=== PATIENT | male | born 1955 | race Caucasian/White ===

== ENCOUNTER 2016-05-16 05:54 | Inpatient (IN) | payer MEDICAID ==
[2016-05-16] MEDS ORDERED: ACETAMINOPHEN 1000MG/100 ML PREMIX IV ONE (06:00)
[2016-05-16] MEDS ORDERED: METOCLOPRAMIDE 10 MG TABLET PO ONE (06:00)
[2016-05-16] MEDS ORDERED: CEFAZOLIN 2 Gram 50 ML IVPB ONE (06:00)
[2016-05-16] MEDS ORDERED: FAMOTIDINE 20MG TABLET PO ONE (06:00)
[2016-05-16] MEDS ORDERED: MECLIZINE 25 MG TABLET PO ONE (06:00)
[2016-05-16] MEDS ORDERED: OXYCODONE HCL 5 MG TABLET PO PRN (09:45)
[2016-05-16] MEDS ORDERED: SENNOSIDES/DOCUSATE SODIUM UD CAPSULE PO PRN (09:45)
[2016-05-16] MEDS ORDERED: METOCLOPRAMIDE HCL 10 MG/2 ML VIAL IVP PRN (09:45)
[2016-05-16] MEDS ORDERED: ONDANSETRON HCL IV 4 MG/2 ML VIAL IVP PRN (09:45)
[2016-05-16] MEDS: RINGERS SOLUTION,LACTATED 1,000 ML IV SCH ×2 (09:45→13:48)
[2016-05-16] MEDS ORDERED: TRAMADOL HCL 50 MG TABLET PO PRN (09:45)
[2016-05-16] MEDS ORDERED: ZOLPIDEM TARTRATE 5 MG TABLET PO PRN (09:45)
[2016-05-16] MEDS ORDERED: HYDROMORPHONE HCL 1 MG/ML CPJ IVP PRN (09:45)
[2016-05-16] MEDS ORDERED: MAGNESIUM HYDROXIDE 30 ML UDC PO PRN (09:45)
[2016-05-16] MEDS ORDERED: AL HYDROX/MAG HYDROX 30ML UD PO PRN (09:45)
[2016-05-16] MEDS ORDERED: DIPHENHYDRAMINE HCL 25 MG CAPSULE PO PRN (09:45)
[2016-05-16] MEDS ORDERED: RINGERS SOLUTION,LACTATED 1,000 ML IV PRN (10:24)
[2016-05-16] MEDS ORDERED: BUPIVACAINE 0.25% W/EPI MPF 30ML VIAL IVP ONE (10:50)
[2016-05-16] MEDS ORDERED: BUPIVACAINE LIPOSOME 266MG/20ML VIAL IV ONE (10:50)
[2016-05-16] MEDS ORDERED: TRANEXAMIC ACID 1,000 MG/10 ML ML IV ONE (10:50)
[2016-05-16] MEDS ORDERED: TRANEXAMIC ACID 1,000 MG in 0.9 % SODIUM CHLORIDE 100ML 100 ML IVPB ONE (11:00)
[2016-05-16] MEDS: TRAMADOL HCL 50 MG TABLET PO PRN (11:53)
[2016-05-16] MEDS: ACETAMINOPHEN 1,000 MG/ 100 ML IV SCH ×4 (12:54→18:43)
[2016-05-16] MEDS: OXYCODONE HCL 5 MG TABLET PO PRN ×3 (14:51→22:39)
[2016-05-16] MEDS: CEFAZOLIN 2 Gram 2 GM in DEXTROSE 1 BAG IVPB SCH ×2 (14:53→22:40)
[2016-05-16] MEDS ORDERED: DIPHENHYDRAMINE HCL IV 50 MG/ML VIAL IVP ONE (15:33)
[2016-05-16] MEDS ORDERED: FENTANYL PF 100MCG/2ML VIAL IV ONE (15:33)
[2016-05-16] MEDS ORDERED: MIDAZOLAM HCL 2MG/2ML VIAL IV ONE (15:33)
[2016-05-16] MEDS ORDERED: LIDOCAINE 2% MDV (20MG/ML) 20ML VIAL IV ONE (15:33)
[2016-05-16] MEDS ORDERED: PROPOFOL 10 MG/ML VIAL IV ONE (15:33)
[2016-05-16] MEDS: FONDAPARINUX 2.5 MG/0.5 ML SYR SQ SCH (18:08)
--- NOTE | 2016-05-16 18:15 | Rehab Evaluation ---
Patient Information - Patient Information Diagnosis: Left Knee OA Ordered Treatment: PT Evaluate and Treat Status: Initial Evaluation Surgery: Yes (L TKA) Date of Surgery: 05/16/16 History: Detail (Pt. reports wear and tear at the left knee for multiple years. Pt. reports left hip and ankle are healthy. Pt. is to have outpatient PT at [facility] starting 05/20/16.) Past Med/[place] Hx Detail: Detail (Pt. denies other joint related surgeries that would affect his functional status postoperatively. See PMH intake.) Past Medical/Surgical Hx: PAST MEDICAL/SURGICAL HISTORY Past Surgical History knee scopes; shoulder sx 13'; PMH - Respiratory Hx Respiratory Disorders Yes Comment: seasonal allergies PMH - Cardiovascular Hx Cardiovascular Disorders Yes Hx Chest Pain Yes: STATES STRESS 6 YRS AGO Exercise Tolerance Good Comment: PRIOR STRESS 6 YRS AGO AND NEG PMH - Neuro Hx Neurological Disorders No PMH - GI Hx Gastrointestinal Disorders No PMH - Hx Genitourinary Disorders Yes Hx Prostate Problems Yes: 6-8 YRS AGO SOME SWELLING WAS PUT ON ABX WITH RELIEF PMH - Endocrine Hx Endocrine Disorders No PMH - Musculoskeletal Hx Musculoskeletal Disorders Yes Hx Arthritis Yes: OSTEOARTHRITIS LEFT KNEE PMH - Psych Hx Psychiatric Problems No PMH - Hematology/Oncology Hx Hematology/Oncology No Disorders Premorbid Status: Detail (Pt. reports slowly progressive worsening of sx.) Social History: Detail (Pt. lives in a single story home with no steps leading in. Pt. has 4 steps inside the home that he has to use. Pt. has a standard tub, grab bar, and shower chair. Pt. has front wheeled walker. Pt. lives with who is able to provide support. Pt. has axillary crutches.) Precautions: [place], Fall - Time With Patient Total Time Spent With Patient (Min): 40 Treatment Procedures: Detail (PT Evaluation Completed. Pt. was left supine with call light available, B IPC, CPM attached, and cryo at LLE. Nursing was notified of pt.'s status.) Subjective Information - Subjective Information Per Patient (Pt. denied SOB, nausea, and reported feeling in his feet at start of tx.) Objective Data - Pain Pain Present: Yes (09/14 to start) Pain Intensity: 6 Pain Scale Used: Numeric (1 - 10) - Mental Status Patient Orientation: Oriented x3 - Visual Perception Appears within normal limits for therapeutic activities - ROM Other (CPM set at 60 degrees flexion and 0 degrees extension via CPM, LLE. RLE WNL all planes of movement. BUE WNL all planes of movement actively.) - Strength/Tone Not within normal limits (Break testing at the left knee not tolerated due to surgery. Left hip flexion and extension 4/5. Pt. unable to perform SLR, LLE. RLE 5/5 grossly. BUE 5/5 grossly.) - Coordination Appears within normal limits for therapeutic activities - Bed Mobility Needs Assist (Pt. required min assist x1 with bed mobility. Pt. unable to hook involved LE with contralateral leg for mobility tasks in bed, and required verbal cues to appropriately place the RLE for repositioning while supine in bed.) - Transfers Needs Assist (Pt. required min assist x1 with sit<->stand transfers. Pt. demonstrated good understanding of LE placement and hand placement on walker.) - Balance Balance Sitting: Good (Pt. able to maintain midline orientation while seated at bedside for ~2 minutes.) Balance Standing: Fair (Pt. able to stand I with front wheeled walker, but required mod assist x1 with perturbation testing in all directions to maintain midline orientation.) - Sensation Intact - Gait Detail (Not assessed due to standing at bedside orders.) - ADL's/IADL's Detail (Not assessed.) - Special Tests Yes (Negative AbesJose Luis.) Therapy Assessment - Therapy Assessment Detail (Pt. exhibits balance impairment, LE weakness, LE ROM impairment, and was not assessed for gait due to recent surgery.) Patient Education - Patient Education Teaching Topic: Disease Process, Equipment Use, Exercise/Activity (Pt. instructed on performance of ankle pumps, heel slides, quad sets, and glute sets.) Response: Return Demonstration, Verbalize Understanding Teaching Method: Discussion, Demonstration Teaching Recipient: Patient Barriers To Learning: None Problem List - Problem List Physical Therapy Problem List: Detail (1) LE weakness 2) LE ROM restriction 3) Standing balance impairment 4) Inability to assess ambulation 5) Assistance with bed mobility and transfers) Goals - Goals Physical Therapy Goals: 1) Pt. will be independent with HEP. 2) Pt. will ambulate more than 50 feet independently with or without AD and not demonstrate LOB for safe ambulation. 3) Pt. will maintain midline orientation with perturbation testing in all directions while standing for safe ambulation and transfers. 4) Pt. will be independent with bed mobility and transfers. 5) Pt. will verbalize understanding of precautions and signs of infection. 6) Pt. will ascend and descend 2 steps for two trials independently and demonstrate good understanding of AD placement and not demonstrate LOB for safe ambulation. Prognosis - Prognosis Good (Pt. is an excellent candidate for PT goal completion and return to home environment following inpatient stay secondary to TKA.) Plan - Plan Physical Therapy Plan: Pt. is to be seen 1-2x per day for physical therapy until PT goals have been achieved for safe D/C to home environment.
[2016-05-17] MEDS: ACETAMINOPHEN 1,000 MG/ 100 ML IV SCH ×2 (00:53)
[2016-05-17 06:01] LABS: HEMATOCRIT 40.2 % (42.0-52.0); HEMOGLOBIN 13.2 gm/dl (14.0-18.0); MEAN CELL VOLUME 88.2 fl (81-97); MEAN CORPUSCULAR HEMOGLOBIN 28.9 pg (27-33); MEAN CORPUSCULAR HGB CONC 32.8 g/dl (32-36); PLATELET COUNT 206 K/uL (130-400); RED BLOOD COUNT 4.56 M/uL (4.40-5.70); RED CELL DISTRIBUTION WIDTH 13.7 % (11.5-14.5); WHITE BLOOD COUNT W/O DIFF 8.5 K/uL (4.2-12.2)
[2016-05-17] MEDS: RINGERS SOLUTION,LACTATED 1,000 ML IV SCH (06:23)
[2016-05-17] MEDS: CEFAZOLIN 2 Gram 2 GM in DEXTROSE 1 BAG IVPB SCH (06:23)
[2016-05-17] MEDS: OXYCODONE HCL 5 MG TABLET PO PRN (06:46)
--- NOTE | 2016-05-17 08:18 | Operative Note ---
DATE OF SURGERY: 05/16/2016. SURGEON: Nba Vargas D.O. REFERRING PHYSICIAN: [facility] PREOPERATIVE DIAGNOSIS: PRIMARY OSTEOARTHRITIS OF THE LEFT KNEE. POSTOPERATIVE DIAGNOSIS: PRIMARY OSTEOARTHRITIS OF THE LEFT KNEE. OPERATIVE PROCEDURE: Left total knee arthroplasty. DESCRIPTION OF PROCEDURE: This 60-year-old male was taken to the operating room and was placed in the supine position on the operating room table. After spinal anesthesia was induced the left lower extremity was elevated. It was prepped with Hibiclens and draped in the usual sterile fashion. It was exsanguinated and the tourniquet was inflated to 300 mm Hg. All scrubbed personnel wore personal isolation suits. An anterior longitudinal midline incision was made followed by a medial peripatellar arthrotomy incision. An intracondylar drill hole was made for the intramedullary alignment hazel and the distal femoral cutting block was set at a 10-mm cut in 6 degrees of valgus, and the appropriate cuts were made. The wafer of bone was removed. The sizing jig was affixed, and a size 70 was seen to be the appropriate size femur. The four-in-one cutting block was then pinned in 3 degrees of external rotation and the appropriate cuts were made. We then directed our attention to the proximal tibia. An extramedullary alignment guide was used to cut the proximal tibia referencing a 10-mm cut off the lateral tibial plateau. However, it was necessary for us to take an additional 2.0 mm because of the patient's bone loss medially. The rotational alignment was checked, and the 3-degree posterior slope cut was made. The wafer of bone was removed. Remnants of the menisci and osteophytes were removed from the posterior aspect of the knee. The tibia was sized to a size 79. The stem punch was subsequently used. The wound was copiously irrigated with pulse lavage lactated ringers solution. The trial components were inserted , and a size 14 bearing trial was seen to be the appropriate size. The patella was cut and restored to anatomic heights with a 37 x 8.6 mm patella. The wound was then copiously irrigated with lactated ringers solution. Exparel was injected into the posteromedial and lateral corners of the joint. After the insertion of the final components, the remainder was injected into the periosteum and joint capsule of the proximal tibia and distal femur. After all bony surfaces were dried, all components were cemented and excess cement was removed after the insertion of each component. The tibial base plate was placed first followed by the tibial bearing, the femoral component, and finally the patella. The knee was again taken through range of motion with all final components in place with full extension and full flexion with good stability being identified. The drain was placed through a separate stab incision. The arthrotomy incision was closed with 2-0 Vicryl. The subcutaneous tissue was closed with 0 Vicryl and the skin was stapled. Polar Care was applied and the patient was taken to the recovery room in satisfactory condition. GROSS PATHOLOGY: This patient demonstrated very severe osteoarthritis, especially of the medial compartment and patellofemoral joint. However, relatively large osteophytes were also present on the lateral femoral condyle with grade 2 to 3 changes noted there as well. FINAL COMPONENTS INSERTED: A [employer] VanGuard size 70 cruciate-retaining femoral component, a 79 tibial base plate, a 14-mm anterior stabilized E1 bearing, and a 37 x 8.6 mm patella was used. Nba Vargas D.O. Date Time Job Number: [id number] MTDD
[2016-05-17] MEDS ORDERED: ACETAMINOPHEN 325 MG TAB PO PRN (09:45)
[2016-05-17] MEDS ORDERED: HYDROCODONE/APAP 7.5/325MG TABLET PO PRN ×2 (09:45)
[2016-05-17] MEDS ORDERED: OXYCODONE/APAP 7.5MG/325MG TABLET PO PRN (09:45)
[2016-05-17] MEDS: OXYCODONE/APAP 7.5MG/325MG TABLET PO PRN ×3 (09:55→23:02)
[2016-05-17] MEDS: CELECOXIB 100 MG CAPSULE PO SCH (09:56)
--- NOTE | 2016-05-17 11:43 | Physical Therapy Tx Note ---
Physical Therapy Tx Note - Treatment Note Tolerated: Good (Pt. reported 7/10 pain to start tx and was left supine with call light available, B IPC, CPM attached, and cryo LLE. Pt. reported 6/10 pain at end of tx session.) Total Time Spent With Patient: 45 Physical Therapy Tx Note: Detail (PT instructed pt. on bed mobility and transfers, however, pt. continues to require min assist x1 with LE positioning. PT provided CGA while pt. ambulated ~60 feet with front wheeled walker. Pt. c/o fatigue and requested to end ambulation training and sit at bedside. PT instructed pt. to perform sit<->stand transfer in bathroom via toilet seat. Pt. demonstrated good understanding of LE placement with sit to stand transfer. PT instructed pt. to perform supine exercises consisting of ankle pumps, quad sets , and glute sets.) Physical Therapy Problem List: Detail (1) LE weakness 2) LE ROM restriction 3) Standing balance impairment 4) Inability to assess ambulation 5) Assistance with bed mobility and transfers) Physical Therapy Goals: 1) Pt. will be independent with HEP. 2) Pt. will ambulate more than 50 feet independently with or without AD and not demonstrate LOB for safe ambulation. 3) Pt. will maintain midline orientation with perturbation testing in all directions while standing for safe ambulation and transfers. 4) Pt. will be independent with bed mobility and transfers. 5) Pt. will verbalize understanding of precautions and signs of infection. 6) Pt. will ascend and descend 2 steps for two trials independently and demonstrate good understanding of AD placement and not demonstrate LOB for safe ambulation. Prognosis: Good (Pt. is expected to meet goals for inpatient PT, however, may stay an additional night due to reports of pain during A.M. session on 05-17-16.) Physical Therapy Plan: Pt. is to be seen 1-2x per day for physical therapy until PT goals have been achieved for safe D/C to home environment.
[2016-05-17] MEDS: TRAMADOL HCL 50 MG TABLET PO PRN (13:01)
--- NOTE | 2016-05-17 16:07 | Physical Therapy Tx Note ---
Physical Therapy Tx Note - Treatment Note Tolerated: Good (Pt. maintained pain report of 5/10 throughout tx session. Pt. did not request break during ambulation. Pt. denied SOB, nausea, or fatigue.) Total Time Spent With Patient: 50 Physical Therapy Tx Note: Detail (PT provided CGA while pt. ambulated 90 feet with front wheeled walker. Pt. was I with bed mobility and transfers. Pt. stood and maintained midline orientation with perturbation testing in all directions. PT instructed pt. on car transfer, stair use, and home exercise program. Pt. sat at bedside for 2 minutes I and maintained midline orientation with perturbation testing in all directions. Pt. required hand support when ascending 3 steps due to difficulty with walker positioning on steps. Pt. states that he does not have to use stairs at home and that he will have family member support when attempting any form of stair use. Pt. was instructed that he is not safe to I use stairs at this time due to difficulty with AD placement. Pt. verbalized understanding of precautions and signs of infenction. Pt. demonstrated good understanding of HEP. Pt. was left supine with call light available, B IPC, cryo LLE, and nursing was notified of pt.'s status.) Physical Therapy Problem List: Detail (Pt. is appropriate for D/C to home environment and is safe to navigate, assuming pt. will have family member support with any attempt at stairs.) Physical Therapy Goals: 1) Pt. will be independent with HEP. 2) Pt. will ambulate more than 50 feet independently with or without AD and not demonstrate LOB for safe ambulation. 3) Pt. will maintain midline orientation with perturbation testing in all directions while standing for safe ambulation and transfers. 4) Pt. will be independent with bed mobility and transfers. 5) Pt. will verbalize understanding of precautions and signs of infection. 6) Pt. will ascend and descend 2 steps for two trials independently and demonstrate good understanding of AD placement and not demonstrate LOB for safe ambulation. Prognosis: Good (Pt. is appropriate for D/C from inpatient therapy and return to home environment. Pt. is to begin outpatient physical therapy on 05/20/16.) Physical Therapy Plan: D/C pt. from inpatient physical therapy.
[2016-05-17] MEDS: FONDAPARINUX 2.5 MG/0.5 ML SYR SQ SCH (16:50)
[2016-05-18 06:18] LABS: HEMATOCRIT 37.2 % (42.0-52.0); HEMOGLOBIN 12.4 gm/dl (14.0-18.0); MEAN CELL VOLUME 88.4 fl (81-97); MEAN CORPUSCULAR HGB CONC 33.3 g/dl (32-36); MEAN PLATELET VOLUME 10.1 fl (7.4-10.4); PLATELET COUNT 188 K/uL (130-400); RED BLOOD COUNT 4.21 M/uL (4.40-5.70); RED CELL DISTRIBUTION WIDTH 13.7 % (11.5-14.5); WHITE BLOOD COUNT W/O DIFF 7.5 K/uL (4.2-12.2)
[2016-05-18 06:26] LABS: MEAN CORPUSCULAR HEMOGLOBIN 29.4 pg (27-33)
[2016-05-18] MEDS: FONDAPARINUX 2.5 MG/0.5 ML SYR SQ SCH (09:02)
[2016-05-18] MEDS: CELECOXIB 100 MG CAPSULE PO SCH (09:02)
--- NOTE | 2016-05-20 09:36 | Discharge Summary ---
DATE OF ADMISSION: 05/16/2016. DATE OF DISCHARGE: 05/18/2016. ADMITTING DIAGNOSIS: Osteoarthritis of the left knee. DISCHARGE DIAGNOSES: Osteoarthritis of the left knee. OPERATIVE PROCEDURE: Elective left total knee arthroplasty. HISTORY OF THE PRESENT ILLNESS: This 60-year-old male was admitted to the hospital following elective total knee arthroplasty and tolerated the operative procedure well. He cleared physical therapy and was ready for discharge on 02/2017. The patient did not demonstrate any evidence of deep venous thrombosis or sign of complication. DISCHARGE INSTRUCTIONS: He will be discharged with aspirin 325 mg b.i.d. for two weeks. He will take Percocet 7.5/325 mg one or two every six hours as necessary for pain; he was given 80. He will alternate with Ultram 50 mg one or two every six hours as necessary for pain; he was given 60 with a refill. He will have outpatient physical therapy. Routine wound care instructions were given. He will follow up in the clinic in two weeks for staple removal. Should he have any problems prior to being seen he was instructed to call my office. Nba Vargas D.O. Date Time JOB NUMBER: [id number] MTDD
== END 2016-05-18 09:35 | disposition home or self-care (01) | DRG 470 ==
LOC: MEDSURG 05:54
PROVIDERS: ADMIT Orthopaedic Surgery; ATTEND Orthopaedic Surgery
PROC: 0SRD0J9 Replacement of Left Knee Joint with Synthetic Substitute, Cemented, Open Approach (ICD-10-PCS; principal; 2016-05-16 07:30)
DX: M17.12 Unilateral primary osteoarthritis, left knee (principal)
CPT/HCPCS: 85025; 97116; 97161; 97530; J1170; J1200; J7120

== ENCOUNTER 2017-04-03 05:51 | Day surgery (SDC) | payer MEDICAID ==
[2017-04-03] MEDS ORDERED: FENTANYL PF 100MCG/2ML VIAL IV ONE (05:52)
[2017-04-03] MEDS ORDERED: LIDOCAINE 2% MDV (20MG/ML) 20ML VIAL IV ONE (05:52)
[2017-04-03] MEDS ORDERED: ROCURONIUM BROMIDE 50MG/5ML VIAL IV ONE (05:52)
[2017-04-03] MEDS ORDERED: KETOROLAC 30 MG/ML VIAL IVP ONE (05:52)
[2017-04-03] MEDS ORDERED: SUCCINYLCHOLINE 20 MG/ML 10ML IVP ONE (05:52)
[2017-04-03] MEDS ORDERED: SEVOFLURANE 250 ML INH ONE (05:52)
[2017-04-03] MEDS ORDERED: EPINEPHRINE 1 MG/ML AMPUL SQ ONE (05:52)
[2017-04-03] MEDS ORDERED: ROPIVACAINE HCL (NAROPIN) /PF 5MG/ML 20ML VIAL IV ONE (05:52)
[2017-04-03] MEDS ORDERED: DEXAMETHASONE 4 MG/ML 1ML VIAL IVP ONE (05:52)
[2017-04-03] MEDS ORDERED: PROPOFOL 10 MG/ML VIAL IV ONE (05:52)
[2017-04-03] MEDS ORDERED: EPHEDRINE SULFATE 50 MG/ML ML IV ONE (05:52)
[2017-04-03] MEDS ORDERED: MIDAZOLAM HCL 2MG/2ML VIAL IV ONE (05:52)
[2017-04-03] MEDS ORDERED: ONDANSETRON HCL IV 4 MG/2 ML VIAL IVP ONE (05:52)
[2017-04-03 06:15] LABS: BASO % 0.5 % (0-6); EOS % 6.8 % (0-6); GRAN % 42.4 % (47-80); HEMATOCRIT 43.4 % (42.0-52.0); HEMOGLOBIN 14.1 gm/dl (14.0-18.0); LYMPH % 36.3 % (16-45); MEAN CELL VOLUME 88.8 fl (81-97); MEAN CORPUSCULAR HEMOGLOBIN 28.8 pg (27-33); MEAN CORPUSCULAR HGB CONC 32.5 g/dl (32-36); MEAN PLATELET VOLUME 9.7 fl (7.4-10.4); PLATELET COUNT 266 K/uL (130-400); RED BLOOD COUNT 4.89 M/uL (4.40-5.70); RED CELL DISTRIBUTION WIDTH 13.2 % (11.5-14.5); WHITE BLOOD COUNT W/O DIFF 4.4 K/uL (4.2-12.2)
[2017-04-03 06:29] LABS: BLOOD UREA NITROGEN 19 mg/dL (8-23); CREATININE 0.8 mg/dL (0.7-1.2); EST GLOMERULAR FILTRATION RATE > 60 mL/min; GLUCOSE,RANDOM 111 mg/dL (74-109)
[2017-04-03] MEDS ORDERED: ACETAMINOPHEN 1,000 MG/100 ML BTL IV ONE (06:30)
[2017-04-03] MEDS ORDERED: CEFAZOLIN 2 Gram 2 GM/50 ML BAG IVPB ONE (06:30)
--- NOTE | 2017-04-04 17:30 | Operative Note ---
DATE OF SURGERY: 04/03/2017 SURGEON: Nba Vargas DO REFERRING: New Guzman DO PREOPERATIVE DIAGNOSES: 1. Tear of the left rotator cuff. 2. Impingement syndrome, left shoulder. POSTOPERATIVE DIAGNOSES: 1. Tear of the left rotator cuff. 2. Impingement syndrome, left shoulder. OPERATIVE PROCEDURE: 1. Arthroscopic debridement of the rotator cuff. 2. Arthroscopic subacromial decompression and acromioplasty, left shoulder. DESCRIPTION: This 61-year-old male was taken to the operating room and placed in the supine position on the operating room table. General anesthesia was induced after a scalene nerve block and the patient was then placed in the beach chair position on the operating room table, bolstered, head well padded, and bony prominences well padded and secured. The left shoulder was then prepped with Hibiclens and draped in the usual sterile fashion. 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 An anterior portal was established. Probing revealed no evidence of labral tear. The patient did have some fraying of the subscapularis, but the supraspinatus and infraspinatus were completely gone and retracted. No visualization of the cuff at the joint line was even evident. The scope was then placed in the subacromial space, and again, no rotator cuff was visualized initially. We thoroughly debrided the extensive bursitis in the subacromial space and once we had debrided all the bursal tissue, we did find a retracted rotator cuff tear posteriorly. The supraspinatus and infraspinatus completely retracted to the level of the joint line with atrophy and scarring being present. We tried to mobilize this utilizing an elevator and debriding scar with the ArthroCare wand. Then we tried to mobilize this tissue, but we could not even come close to covering the humeral head. We felt that this cuff was not repairable. The patient's biceps tendon was absent. We thoroughly debrided the bursal tissue and subacromial decompression and acromioplasty was performed and the wound irrigated and the scope removed, the portals closed with 4-0 nylon suture. Sterile dressings were applied, and the patient was taken to the recovery room in satisfactory condition. GROSS PATHOLOGY: This patient demonstrated severe retracted tear of the rotator cuff tendons, supraspinatus, and infraspinatus with some fraying of the subscapularis also. The biceps tendon was absent. 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 CC: DO SHINE Zamora
== END 2017-04-03 09:50 | disposition home or self-care (01) ==
LOC: SUR 05:51
PROVIDERS: ATTEND Orthopaedic Surgery
DX: M75.122 Complete rotator cuff tear or rupture of left shoulder, not specified as traumatic (principal); M75.42 Impingement syndrome of left shoulder
CPT/HCPCS: 29826; 29827; 64415; 01630; 85025; 80048; J1885; J2405; J3010; J0690; J2795; J0171; J0330

== ENCOUNTER 2017-11-06 09:26 | Day surgery (SDC) | payer MEDICAID ==
[2017-11-06] MEDS ORDERED: PROPOFOL 10 MG/ML VIAL IV ONE (09:27)
[2017-11-06] MEDS ORDERED: LIDOCAINE 2% MDV (20MG/ML) 20ML VIAL IV ONE (09:27)
[2017-11-06] MEDS ORDERED: MIDAZOLAM HCL 2MG/2ML VIAL IV ONE (09:27)
--- NOTE | 2017-11-07 12:40 | Operative Note ---
DATE OF SURGERY: 11/06/2017 OPERATION: COLONOSCOPY with cold snare polypectomy. PREOPERATIVE DIAGNOSIS: Idiopathic pelvic pain and questionable history of polyps. POSTOPERATIVE DIAGNOSES: 1. Transverse colon polyp. 2. Sigmoid diverticulosis. PROCEDURE: After informed consent was obtained from the patient, he was placed in the left lateral decubitus position in the endoscopy suite, sedated and monitored by the department of anesthesia. Digital rectal examination was unremarkable. A well-lubricated [id number] colonoscope was inserted into the rectum and advanced to the cecum. Preparation quality was good. The cecum, ileocecal valve, and ascending colon were unremarkable. The proximal transverse colon revealed a 4 mm sessile polyp removed with a cold snare. Minimal bleeding was noted at the site. The remainder of the transverse colon, descending colon, sigmoid colon, and rectum were unremarkable. Forward and J-turn views of the rectum and anorectum were unrevealing. There were, however, noted to be scattered sigmoid diverticula. RECOMMENDATIONS: The patient should follow a high-fiber diet. I would recommend a repeat exam in 5 years for continued surveillance. As always, thank you for allowing me to participate in the healthcare of your patients. CC: DO SHINE Zamora
== END 2017-11-06 10:52 | disposition home or self-care (01) ==
LOC: HOP 09:26
PROVIDERS: ATTEND Internal Medicine Gastroenterology
DX: R10.2 Pelvic and perineal pain (principal); D12.3 Benign neoplasm of transverse colon; K57.30 Diverticulosis of large intestine without perforation or abscess without bleeding